=== PATIENT | female | born 1960 | race Asian ===

== ENCOUNTER 2019-09-18 10:10 | Emergency (ER) | payer BC ==
[~2019-09-18] VITALS: Ht 152.4 cm; Wt 44.5 kg
[2019-09-18 10:20] VITALS: BP_SYST 108
--- NOTE | 2019-09-18 10:20 | NUR ---
Patient to ER bed 6 to gown for evaluation. Side rails up.
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
--- NOTE | 2019-09-18 11:04 | NUR ---
ER at bedside examining patient.
[2019-09-18] MEDS ORDERED: MORPHINE 2 MG/ML INJ. SYRINGE IM ONE (11:15)
[2019-09-18] MEDS ORDERED: oxyCODONE HCL 5 MG TABLET PO ONE ×2 (11:30→12:30)
--- NOTE | 2019-09-18 12:00 | NUR ---
PT RESTING IN [facility] NO S/S OF DISTRESS AT THIS TIME. SON AT BEDSIDE
[2019-09-18 13:25] VITALS: BP_SYST 108
--- NOTE | 2019-09-18 13:25 | NUR ---
Patient given written and verbal discharge instructions and verbalizes understanding. ER MD discussed with patient the results and treatment provided. Patient in stable condition. ID arm band removed. Patient educated on pain management and to follow up with PMD. Pain Scale 2. Opportunity for questions provided and answered. Medication side effect fact sheet provided.
== END 2019-09-18 13:25 | disposition home or self-care (01) ==
LOC: SED 10:10
DX: R51 Headache (principal); Z88.8 Allergy status to other drugs, medicaments and biological substances; W18.39XA Other fall on same level, initial encounter; Y93.89 Activity, other specified; Y92.89 Other specified places as the place of occurrence of the external cause; Y99.8 Other external cause status
CPT/HCPCS: 70450-TC; 99284; J2270